=== PATIENT | female | born 1960 | race Caucasian/White ===

== ENCOUNTER 2020-01-21 13:27 | Outpatient (CLI) | payer OTHER, SELFPAY ==
--- NOTE | ~2020-01-21 | XR_ITS ---
XR abdomen/kub 1V DATE: 01/21/2020 13:55 INDICATION: Kidney calculus TECHNIQUE: AP projection, 2 views COMPARISON: 11/29/2015 KUB FINDINGS: There is a comma-shaped approximately 3 x 5 mm calcified density overlying the lower pole o f the right kidney. No other definite urinary tract calcification is noted. There is a prominent amount of fecal material within the colon but no apparent bowel obstruction. The psoas shadows are intact. No visceromegaly is evident. Normal heart size. The lung bases appear clear. Mild levoscoliosis and degenerative change of the lumbar spine.. IMPRESSION: Persistent lower pole right renal calcified calculus, also present on 11/29/2015 Reviewed, dictated and finalized at Location A. Reviewed, dictated and finalized at location B.
== END 2020-01-21 13:28 | disposition home or self-care (01) ==
LOC: ANHIMG 13:39
PROVIDERS: PCP Family Medicine; Visit Provider Nurse Practitioner Adult Health
DX: N20.0 Calculus of kidney (principal)
CPT/HCPCS: 74018

== ENCOUNTER 2020-05-13 10:24 | Outpatient (CLI) | payer OTHER, SELFPAY ==
--- NOTE | ~2020-05-13 | MM_ITS ---
EXAMINATION: MM screening [facility] BI w pooja HISTORY: Screening mammogram TECHNIQUE: Craniocaudal and mediolateral oblique 3-D tomosynthesis images were obtained and synthetic 2-D images were generated. CAD analysis was submitted and interpreted. COMPARISON: 04/18/2019, 04/12/2018, 04/10/2017 BREAST PARENCHYMAL COMPOSITION: The breasts are heterogeneously dense, which may obscure small masses . FINDINGS: There is no evidence of suspicious mass, calcification, or architectural distortion to sugg est malignancy in either breast. There has been no suspicious interval change. IMPRESSION: 1. No mammographic evidence of malignancy. 2. Recommend routine screening mammography in one year. BI-RADS Category 1: Negative Reviewed, dictated and finalized at location A.
== END 2020-05-13 10:25 | disposition home or self-care (01) ==
LOC: ANHIMG 10:27
PROVIDERS: PCP Family Medicine; Visit Provider Nurse Practitioner Obstetrics & Gynecology
DX: Z12.31 Encounter for screening mammogram for malignant neoplasm of breast (principal)
CPT/HCPCS: 77063; 77067

== ENCOUNTER 2021-05-06 09:48 | Outpatient (CLI) | payer OTHER, SELFPAY ==
--- NOTE | ~2021-05-06 | XR_ITS ---
EXAMINATION:XR cervical spine min 6V DATE: 05/06/2021 10:17 INDICATION: Spondylosis without myelopathy or radiculopathy, cervical TECHNIQUE: AP, lateral in neutral, flexion, and extension, lateral swimmers and odontoid views of the cervical spine are provided. COMPARISON: 10/31/2016 FINDINGS: There is 1 mm of stable anterolisthesis of C4 on C5. Vertebral body alignment is otherwise maintained. No laxity is present with flexion or extension. The odontoid is intact. No fracture is id entified. Vertebral body heights and disk spaces are normal. There is mild to moderate multilevel fac et and uncovertebral joint osteoarthritis. IMPRESSION: 1. Mild cervical spondylosis without acute findings or significant interval change. Reviewed, dictated and finalized at location B. IMPRESSION: 1. Mild cervical spondylosis without acute findings or significant interval leandra nge.
== END 2021-05-06 09:49 | disposition home or self-care (01) ==
LOC: ANHIMG 09:51
PROVIDERS: PCP Family Medicine; Visit Provider Family Medicine
DX: M47.892 Other spondylosis, cervical region (principal)
CPT/HCPCS: 72052

== ENCOUNTER 2021-05-16 07:44 | Outpatient (CLI) | payer OTHER, SELFPAY ==
--- NOTE | ~2021-05-16 | DEXA_ITS ---
Bone Density Report Name: Sara Vargas Age: 61 Sex: Female Ethnicity: White Date of : 1960 Indication: postmenopausal; Referring Provider: Kirsty, Joyce Cueto Study: Bone densitometry was performed. Exam Date: May 16, 2021 Accession number: [id number] Bone Density: Region BMD T-score Z-score Classification AP Spine (L1-L4) 0.767 -2.5 -1.0 Osteoporosis Femoral Neck (Left) 0.634 -1.9 -0.6 Osteopenia Total Hip (Left) 0.749 -1.6 -0.5 Osteopenia Total Hip Bilateral Avg 0.734 -1.7 -0.7 Osteopenia Femoral Neck (Right) 0.604 -2.2 -0.8 Osteopenia Total Hip (Right) 0.718 -1.8 -0.8 Osteopenia World Health Organization criteria for BMD impression classify patients as: Normal (T-score at or above -1.0), Osteopenia (T-score between -1.0 and -2.5), or Osteoporosis (T-score at or below -2.5). 10-year Fracture Risk: FRAX not reported because: Some T-score for Spine Total or Hip Total or Femoral Neck at or below -2.5 Treated for osteoporosis Clinical Information Provided by Patient: Is being treated for osteoporosis Has used the following medications: Vitamin D, Calcium Patient maximum height was 60 Menopause Age: 49 Onset of menses at age 10 Number of children 1 Impression: The patient has osteoporosis, based on the Total Spine T-score. Discussion: It is important to ask patients whether they are taking their medications and to encourage continued and appropriate compliance with their osteoporosis therapies to reduce fracture risk. It is also important to review their risk factors and encourage appropriate calcium and vitamin D intakes, exercise, fall prevention and other lifestyle measures. Follow-Up: Consider a repeat BMD and Vertebral Fracture Assessment (VFA) exam in 2 years or sooner if medically necessary, to reassess this patient's status. Reported by: [facility] on 05/16/2021 8:08:00 AM. Reviewed, dictated and finalized at location AEboni HARTMAN
--- NOTE | ~2021-05-16 | MM_ITS ---
EXAMINATION: MM screening [facility] BI w pooja HISTORY: Screening mammogram TECHNIQUE: Craniocaudal and mediolateral oblique 3-D tomosynthesis images were obtained and synthetic 2-D images were generated. CAD analysis was submitted and interpreted. COMPARISON: 05/13/2020, 04/18/2019, 04/12/2018, 04/10/2017 BREAST PARENCHYMAL COMPOSITION: The breasts are heterogeneously dense, which may obscure small masses . FINDINGS: There is no evidence of suspicious mass, calcification, or architectural distortion to sugg est malignancy in either breast. There has been no suspicious interval change. IMPRESSION: 1. No mammographic evidence of malignancy. 2. Recommend routine screening mammography in one year. BI-RADS Category 1: Negative Reviewed, dictated and finalized at location A.
== END 2021-05-16 07:45 | disposition home or self-care (01) ==
LOC: ANHIMG 07:45
PROVIDERS: PCP Family Medicine; Visit Provider Nurse Practitioner Obstetrics & Gynecology
DX: Z12.31 Encounter for screening mammogram for malignant neoplasm of breast (principal); M85.80 Other specified disorders of bone density and structure, unspecified site; M81.0 Age-related osteoporosis without current pathological fracture; M85.852 Other specified disorders of bone density and structure, left thigh; M85.851 Other specified disorders of bone density and structure, right thigh
CPT/HCPCS: 77063; 77067; 77080

== ENCOUNTER 2021-09-01 11:00 | Outpatient (RCR) | payer OTHER, SELFPAY ==
--- NOTE | 2021-06-07 11:55 | PTOPEVAL ---
PHYSICAL THERAPY EVALUATION AND PLAN OF CARE Thank you for referring Sara Vargas to [facility].? The patient is scheduled to be seen for therapy?1x/week for 6 weeks. Please review, sign, date and return this plan of care ALEXANDREA. I agree with and certify that the following plan of care is medically necessary. Referring Physician Date Attending Provider: Briana Eastman MD Evaluation Diagnosis cervical pain Onset March 2021 Subjective Information Sara does have a chronic Query Text:As Reported By Patient/ history of neck pain that she Family was managing with massage and chiropractic. She has participated in PT in the past with success. In the end of March, she was getting a massage and experienced a pressure across the front of her sternum and anterior neck. After several days she woke up with a major migraine. She stopped massage, increased the frequency of seeing her chiropractor and he assessed her to have vertigo symptoms ( did have some dizziness but that seems to be resolved). She reports feeling extreme fatigue through her neck and shoulders. Migraines are more frequent than they had been. Self Report Pain Assessment Spine, Cervical Reported Pain Level 5 Pain Description Tightness Pain Radiation Left Shoulder,Right Shoulder Pain Frequency Acute,Intermittent Other Pain Aggravating Factors looking down can provoke fatigued feeling Pain Behaviors None Pain Score Pain Score 5: Self Report Interventions Used Interventions Used By Clinicians Exercise,Manual Therapy Techniques Pain Relief Interventions Used By Inactivity/Rest,Medication Patient Cervical and Lumbar ROM Cervical ROM Cervical Flexion (0-60) 25 Query Text:Active in Degrees Cervical Extension (0-70) 25 Query Text:Active in Degrees Cervical Rotation Right (0-90) 25 Query Text:Active in Degrees Cervical Rotation Left (0-90) 25 Query Text:Active in Degrees Cervical ROM Comments cervical flexion and extension improved after manual assessment
--- NOTE | 2021-07-19 14:44 | PTOPEVAL ---
PHYSICAL THERAPY PLAN OF CARE UPDATE Thank you for referring Sara Vargas to [facility].? The patient is scheduled to be seen for therapy? 1x/week for 4-6 weeks. Please review, sign, date and return this plan of care ALEXANDREA. I agree with and certify that the following plan of care is medically necessary. Referring Physician Date Attending Provider: Briana Eastman MD Progress Diagnosis cervical pain Onset March 2021 Self Report Pain Assessment Spine, Cervical Reported Pain Level 3 Pain Description Tightness Pain Radiation Left Shoulder,Right Shoulder Pain Frequency Acute,Intermittent Other Pain Aggravating Factors . Pain Behaviors None Pain Score Pain Score 3: Self Report Interventions Used Interventions Used By Clinicians Manual Therapy Techniques Pain Relief Interventions Used By Inactivity/Rest,Medication Patient Cervical and Lumbar ROM Cervical ROM Cervical Flexion (0-60) 50 Query Text:Active in Degrees Cervical Extension (0-70) 50 Query Text:Active in Degrees Cervical Rotation Right (0-90) 55 Query Text:Active in Degrees Cervical Rotation Left (0-90) 50 Query Text:Active in Degrees Cervical ROM Comments cervical flexion and extension improved after manual assessment Upper Extremity Muscle Strength Testing Scapular/Shoulder Left Shoulder Flexion Strength 4+ Good + Shoulder Abduction Strength 4+ Good + Shoulder Medial Rotation Strength 5 Normal Shoulder Lateral Rotation Strength 5 Normal Right Shoulder Flexion Strength 4 Good Shoulder Abduction Strength 4 Good Shoulder Medial Rotation Strength 5 Normal Shoulder Lateral Rotation Strength 5 Normal Palpation Assessment Palpation Palpation significantly improved upper cervical and head mobility; left upper trapezius and scalenes inflamed today - she does have something like an earache today that she has had before and was treated well with direct care professional; General Exercise General Exercises Side Bilateral Exercise Location shoulders Exercise Type Active,Resistive,Stretching Exercise Description -prone scapular retraction Query Text:Record Sets, Reps, -prone lower trapezius Resistance, and Position activation -prone middle trapezius, good performance on right, poor
--- NOTE | 2021-09-05 15:59 | PCPTNOTE ---
This treatment is being continued on visit number [id number]. Please see documentation on both accounts to view progress. Completed interventions, outcomes, and problems have been marked as Inactive to facilitate the copying of the Care plan routine for recurring accounts.
== END 2021-09-04 23:59 | disposition home or self-care (01) ==
LOC: ANHPT 11:00
PROVIDERS: PCP Family Medicine; Visit Provider Family Medicine
DX: M47.812 Spondylosis without myelopathy or radiculopathy, cervical region (principal)
CPT/HCPCS: 97110; 97140; 97162

== ENCOUNTER 2021-09-28 07:27 | Outpatient (CLI) | payer OTHER, SELFPAY ==
--- NOTE | ~2021-09-28 | US_ITS ---
EXAMINATION: US abdomen complete DATE: 09/28/2021 08:44 INDICATION: Elevated liver function tests TECHNIQUE: Multiple grayscale and Doppler ultrasound images of the abdomen were obtained. COMPARISON: None FINDINGS: The pancreatic head and body are normal in appearance. The pancreatic tail is not visualized. Liver h as normal echogenicity and contour, with a smooth surface. No liver lesion identified. No intrahepati c biliary duct dilation suspected. Portal venous flow was seen in the hepatopetal, normal direction a nd has normal Doppler waveform. The gallbladder is normal in appearance. There is no cholelithiasis. The common bile duct measures 4 mm, which is normal. Sonographic [place] sign was reported as negativ e by the sailing officer. The abdominal aorta and inferior vena cava are normal. There is normal renal co ntour and echogenicity bilaterally. The right kidney measures 8.6 x 4.8 x 3.5 cm and the left 8.5 x 4 .2 x 3.8 cm. There are no focal renal lesions identified. There is no hydronephrosis. Spleen is nor mal measuring 6.3 cm in maximal length. IMPRESSION: 1. Normal abdominal ultrasound. Reviewed, dictated and finalized at location A. 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
== END 2021-09-28 07:28 | disposition home or self-care (01) ==
PROVIDERS: PCP Family Medicine; Visit Provider Physician Assistant
DX: R79.89 Other specified abnormal findings of blood chemistry (principal)
CPT/HCPCS: 76700

== ENCOUNTER 2021-10-18 14:00 | Outpatient (RCR) | payer OTHER, SELFPAY ==
--- NOTE | 2021-09-05 15:58 | PCPTNOTE ---
The treatment documented on this account is a continuation of the treatment documented on visit number [id number]. Please see documentation on both accounts to view progress. The Plan of Care has been transitioned and updated within the new V#. I have addressed and agree with the discipline specific Problems, Interventions, and Goals for the current certification period. Completed interventions, outcomes, and problems have been marked as Inactive to facilitate the copying of the Care plan routine for recurring accounts.
--- NOTE | 2021-09-07 15:17 | PTOPEVAL ---
PHYSICAL THERAPY PROGRESS REPORT Thank you for referring Sara Vargas to [facility].? The patient is scheduled to be seen for therapy? 2-4x/month for 2 months. Please review, sign, date and return this plan of care ALEXANDREA. I agree with and certify that the following plan of care is medically necessary. Referring Physician Date Attending Provider: Briana Eastman MD Progress Diagnosis cervical pain Onset March 2021 Subjective Information Overall is doing very well Query Text:As Reported By Patient/ with her neck. Some occasional Family set backs and episodes of pain after increased activity. Migraines have decreased by about 30-50% depending on activity. Anterior neck pain flared up a little bit this morning but it is better by this after noon. Has a complaint of a small amount of low back pain on the right. Saw her chiropractor who is noticing dysfunction of the left glute but she has no pain. Pain Score Pain Score 1: Self Report Interventions Used Interventions Used By Clinicians Exercise,Joint Mobilization, Manual Therapy Techniques Pain Relief Interventions Used By Inactivity/Rest,Medication Patient Upper Extremity Range of Motion General Upper Extremity Range of Motion Reason Not Measured WFL/Left,WFL/Right Gross Upper Extremity Range of Motion grossly WFL, but right is Comments slightly more restricted at end range and is more stiff to bring behind head Lower Extremity Muscle Strength Testing Hip Strength Bilateral Hip Flexion Strength 4+ Good + Hip Abduction Strength 3+ Fair + Upper Extremity Muscle Strength Testing Scapular/Shoulder Bilateral Shoulder Flexion Strength 4+ Good + Shoulder Abduction Strength 4+ Good + Shoulder Medial Rotation Strength 5 Normal Shoulder Lateral Rotation Strength 5 Normal Muscle Length Testing Muscle Length Testing Left Hamstring Length -25 Query Text:(90 - 90 Position) Right Hamstring Length -10 Query Text:(90 - 90 Position) Muscle Length Testing Comments right QL short compared to left Palpation Assessment Palpation Palpation I consider her upper cervical mobility to be WNL at this time with a very minimal amount of tightness on the
--- NOTE | 2021-10-18 14:37 | PTOPEVAL ---
PHYSICAL THERAPY DISCHARGE NOTE Thank you for referring Sraa Vargas to [facility]. Please review, sign, date and return this plan of care ALEXANDREA. I agree with and certify that the following plan of care is medically necessary. Referring Physician Date Attending Provider: Briana Eastman MD Diagnosis cervical pain Onset March 2021 Subjective Information Still doing much better. Some Query Text:As Reported By Patient/ occasional set backs and Family episodes of pain after increased activity. Migraines have decreased by about 50-70% depending on activity. Anterior neck pain is doing very well. Starting get much more involved in exercise programs at the [facility] and she is doing well. Self Report Pain Assessment Neck Reported Pain Level 1 Pain Score Pain Score 1: Self Report Interventions Used Interventions Used By Clinicians Exercise,Joint Mobilization, Manual Therapy Techniques Pain Relief Interventions Used By Exercise,Inactivity/Rest, Patient Medication Cervical and Lumbar ROM Cervical ROM Cervical Flexion (0-60) 60 Query Text:Active in Degrees Cervical Extension (0-70) 55 Query Text:Active in Degrees Cervical Rotation Right (0-90) 60 Query Text:Active in Degrees Cervical Rotation Left (0-90) 60 Query Text:Active in Degrees Cervical ROM Comments . Upper Extremity Muscle Strength Testing Scapular/Shoulder Bilateral Shoulder Flexion Strength 5 Normal Shoulder Extension Strength 5 Normal Shoulder Abduction Strength 4+ Good + Shoulder Medial Rotation Strength 5 Normal Shoulder Lateral Rotation Strength 5 Normal Palpation Assessment Palpation Palpation I consider her upper cervical and thoracic mobility to be WNL Manual Therapy Manual Therapy Side Bilateral Manual Therapy Location Spine, Cervical Patient Position Supine Treatment Comments supine: lateral glides Query Text:Include Technique and cervical spine gr 1-2 each Result of Technique direction - -prone: myofascial release to upper thoracic and right and left ribs [id number]; P-A thoracic spine gr 2-3; STM paraspinals; myofascial release and thoracolumbar
== END 2021-12-19 13:08 | disposition home or self-care (01) ==
LOC: ANHPT 14:00
PROVIDERS: PCP Family Medicine; Visit Provider Family Medicine
DX: M47.812 Spondylosis without myelopathy or radiculopathy, cervical region (principal)
CPT/HCPCS: 97110; 97140

== ENCOUNTER 2022-05-19 07:41 | Outpatient (CLI) | payer OTHER, SELFPAY ==
--- NOTE | ~2022-05-19 | MM_ITS ---
EXAMINATION: MM screening [facility] BI w pooja HISTORY: Screening mammogram TECHNIQUE: Craniocaudal and mediolateral oblique 3-D tomosynthesis images were obtained and synthetic 2-D images were generated. CAD analysis was submitted and interpreted. COMPARISON: 05/16/2021, 05/13/2020, 04/18/2019 BREAST PARENCHYMAL COMPOSITION: The breasts are heterogeneously dense, which may obscure small masses . FINDINGS: There is no suspicious mass, calcification, or architectural distortion to suggest malignan cy in either breast. There has been no suspicious interval change. IMPRESSION: 1. No mammographic evidence of malignancy. 2. Recommend routine screening mammography in one year. BI-RADS Category 1: Negative Reviewed, dictated and finalized at location A.
== END 2022-05-19 07:42 | disposition home or self-care (01) ==
LOC: ANHIMG 07:43
PROVIDERS: PCP Family Medicine; Visit Provider Nurse Practitioner Obstetrics & Gynecology
DX: Z12.31 Encounter for screening mammogram for malignant neoplasm of breast (principal)
CPT/HCPCS: 77063; 77067

== ENCOUNTER 2022-07-04 10:10 | Outpatient (CLI) | payer OTHER, SELFPAY ==
--- NOTE | ~2022-07-04 | XR_ITS ---
EXAM: XR abdomen/kub 1V DATE: 07/04/2022 10:28 HISTORY: CALCULUS OF KIDNEY, right side . COMPARISON: 01/21/2020. FINDINGS: Clear lung bases. Normal bowel gas pattern. No organomegaly. Right midpole calcification p robably still present and stable, mostly obscured by bowel gas and bowel content. Mild lumbar scolios is. IMPRESSION: Right renal calcification likely still present partially obscured by bowel gas/contents e xam. Reviewed, dictated and finalized at location K. IMPRESSION: Right renal calcification likely still present partially obscured b y bowel gas/contents exam.
== END 2022-07-04 10:11 | disposition home or self-care (01) ==
PROVIDERS: PCP Family Medicine; Visit Provider Nurse Practitioner Adult Health
DX: N20.0 Calculus of kidney (principal)
CPT/HCPCS: 74018

== ENCOUNTER 2022-08-13 08:43 | Outpatient (CLI) | payer OTHER, SELFPAY ==
--- NOTE | ~2022-08-13 | XR_ITS ---
XR abdomen/kub 1V 08/13/2022 09:06 INDICATION: Renal stone TECHNIQUE: KUB COMPARISON: Comparison to multiple prior studies sequentially, with oldest reviewed study dated 10/05. FINDINGS: Bowel gas pattern is normal. Bowel content obscures the kidneys. No definite renal stones a re identified. There is no evidence of free air, mass, organomegaly, ascites or obstruction. No abno rmal calculi are seen. The bones appear intact. IMPRESSION: 1: No acute abdominal abnormality identified. Reviewed, dictated and finalized at location A.
== END 2022-08-13 08:44 | disposition home or self-care (01) ==
LOC: ANHIMG 08:46
PROVIDERS: PCP Family Medicine; Visit Provider Nurse Practitioner Adult Health
DX: N20.0 Calculus of kidney (principal)
CPT/HCPCS: 74018

== ENCOUNTER 2023-05-21 07:43 | Outpatient (CLI) | payer OTHER, SELFPAY ==
--- NOTE | ~2023-05-21 | MM_ITS ---
EXAMINATION: MM screening [facility] BI w pooja HISTORY: Screening TECHNIQUE: Craniocaudal and mediolateral oblique 3-D tomosynthesis images were obtained and synthetic 2-D images were generated. CAD analysis was submitted and interpreted. COMPARISON: Comparison to multiple prior studies sequentially, with oldest reviewed study dated 04/2017. BREAST PARENCHYMAL COMPOSITION: The breasts are extremely dense, which lowers the sensitivity of mamm ography FINDINGS: There is subtle asymmetries centrally in the right breast which may represent superimposed fibroglandular content, although follow-up recommended. The left breast is stable without evidence fo r malignancy. IMPRESSION: 1. Subtle right breast asymmetries located centrally, obscured by fibroglandular tissue. 2. Additional mammographic views and possible breast ultrasound are recommended. BI-RADS Category 0: Incomplete: Needs additional imaging evaluation. Reviewed, dictated and finalized at location A. IMPRESSION: 1. Subtle right breast asymmetries located centrally, obscured by fibroglandula r tissue. 2. Additional mammographic views and possible breast ultrasound are recommended . BI-RADS Category 0: Incomplete: Needs additional imaging evaluation.
--- NOTE | ~2023-05-21 | DEXA_ITS ---
Bone Density Report Name: MARISELA GARCIA Age: 63 Sex: Female Ethnicity: White Date of : 1960 Indication: postmenopausal; screening for osteoporosis; Referring Provider: KATELIN DAWKINS Study: Bone densitometry was performed. Exam Date: May 21, 2023 Accession number: [id number] Bone Density: Region BMD T-score Z-score Classification AP Spine(L1-L4) 0.782 -2.4 -0.7 Osteopenia Femoral Neck (Left) 0.627 -2.0 -0.5 Osteopenia Total Hip (Left) 0.719 -1.8 -0.7 Osteopenia Femoral Neck (Right) 0.619 -2.1 -0.6 Osteopenia Total Hip (Right) 0.737 -1.7 -0.5 Osteopenia Total Hip Mean 0.728 -1.8 -0.6 Osteopenia World Health Organization criteria for BMD impression classify patients as: Normal (T-score at or above -1.0), Osteopenia (T-score between -1.0 and -2.5), or Osteoporosis (T-score at or below -2.5). 10-year Fracture Risk(1): Major Osteoporotic Fracture 9.0% Hip Fracture 1.5% Reported Risk Factors: [place] (), Neck BMD=0.619, BMI=19.1 (1) FRAX(R) Version 3.08. Fracture probability calculated for an untreated patient. Fracture probability may be lower if the patient has received treatment. Clinical Information Provided by Patient: Has used the following medications: Vitamin D, Calcium Patient maximum height was 60 Menopause Age: 51 Does not regularly consume dairy products Onset of menses at age 10 Number of children 1 Impression: The patient has low bone mass, based on the Total Spine T-score. The patient has an estimated ten-year risk of hip fracture of 1.5% and an estimated ten-year risk of major fracture of 9%, based on the WHO FRAX algorithm. Discussion: BONE DENSITY IS LOW AT ONE OR MORE SKELETAL SITES. This patient's lowest T-score is low at one or more skeletal sites. It meets the World Health Organization's (WHO) criteria for ?low bone mass? (T-score between -1.0 and -2.5). The patient's 10-year risk of fracture as calculated by FRAX is less than the threshold where pharmacological therapy is recommended by the National Osteoporosis Foundation (NOF). However, all treatment decisions require clinical judgment and consideration of individual patient factors, including patient preferences, comorbidities, previous drug use, risk factors not captured in the FRAX model (e.g., frailty, falls, vitamin D deficiency, increased bone turnover, interval significant decline in bone density) and possible under or overestimation of fracture risk by FRAX. The patient should follow a healthful lifestyle (good nutrition with adequate calcium and vitamin D, and appropriate weight-bearing exercise). Follow-Up: Consider repeating this study in 2 to 3 years to reassess this patient's status, or sooner if there is some new clinical indication. Reported by: YOLANDA on 05/21/2023 2:27:0
== END 2023-05-21 07:44 | disposition home or self-care (01) ==
LOC: ANHIMG 07:45
PROVIDERS: PCP Family Medicine; Visit Provider Physician Assistant
DX: Z12.31 Encounter for screening mammogram for malignant neoplasm of breast (principal); Z78.0 Asymptomatic menopausal state; R92.8 Other abnormal and inconclusive findings on diagnostic imaging of breast; M85.88 Other specified disorders of bone density and structure, other site; M85.852 Other specified disorders of bone density and structure, left thigh; M85.851 Other specified disorders of bone density and structure, right thigh
CPT/HCPCS: 77063; 77067; 77080

== ENCOUNTER 2023-05-22 11:54 | Outpatient (CLI) | payer OTHER, SELFPAY ==
--- NOTE | ~2023-05-22 | MMUS_ITS ---
EXAMINATION: MM diagnostic [facility] RT w pooja, US breast RT complete HISTORY: Follow-up right breast asymmetries. TECHNIQUE: Additional 3-D tomosynthesis images of the right breast were performed and synthetic 2-D i mages were generated. CAD analysis was submitted and interpreted. High resolution complete right madeline st ultrasound was performed. COMPARISON: Comparison to multiple prior studies sequentially, with oldest reviewed study dated 06/2018. BREAST PARENCHYMAL COMPOSITION: The breasts are extremely dense, which lowers the sensitivity of mamm ography FINDINGS: MAMMOGRAPHIC FINDINGS: There are no suspicious masses, calcifications or architectural distortion in the right breast to sug gest malignancy. ULTRASOUND: Complete US of all 4 quadrants of the right breast and retroareolar region was reviewed. There is nor mal heterogeneous echotexture without focal solid or cystic mass. IMPRESSION: 1. No evidence for malignancy in the right breast. 2. Routine yearly screening mammogram and regular clinical breast examination are recommended. BI-RADS Category 1: Negative Reviewed, dictated and finalized at location A. IMPRESSION: 1. No evidence for malignancy in the right breast. 2. Routine yearly screening mammogram and regular clinical breast examination a re recommended. BI-RADS Category 1: Negative
== END 2023-05-22 11:55 | disposition home or self-care (01) ==
PROVIDERS: PCP Family Medicine; Visit Provider Physician Assistant
DX: R92.8 Other abnormal and inconclusive findings on diagnostic imaging of breast (principal)
CPT/HCPCS: 76641; 77061; 77065; G0279

== ENCOUNTER 2023-06-26 07:48 | Outpatient (CLI) | payer OTHER, SELFPAY | END 2023-06-26 07:49 | disposition home or self-care (01) | LOC: ANHAUDIO 07:48 | PROVIDERS: PCP Family Medicine; Visit Provider Physician Assistant | DX: H91.90 Unspecified hearing loss, unspecified ear (principal) | CPT/HCPCS: 92557; 92567 ==

== ENCOUNTER 2023-08-20 09:00 | Outpatient (RCR) | payer OTHER, SELFPAY ==
--- NOTE | 2023-05-28 10:51 | PTOPEVAL1 ---
Assessment and note entered by Sam Brooks, PT Evaluation Information Assessment Status Evaluation Diagnosis Cervical Radiculopathy Onset 12/06/22 Subjective Information Reports that she has been taking a dance class and doing yoga and has noted increased neck and cervical pain with radiation up and down her neck and occasionally into face. Sometimes it feel like an ear ache. She takes Imitrex for her migraines and they help all symptoms. Reported Pain Level Pain Score 0: Self Report Assessment PT Clinical Summary Patient presenting with sings and symptoms consistent with facet irritation and loss of cervical ROM. Deficits appear joint related at this time and have had a consistent provocation with activity. Patient also shows postural deficits and will benefit from skilled therapy to address these deficits. Plan of Care Interventions Electrical Stimulation,Hot Pack/Cold Pack,Manual Therapy,Neuro Re-education,Therapeutic Activities, Therapeutic Exercise PT Services Indicated Yes These treatments will address the objective and functional deficits as defined above. The patient will be advanced safely and appropriately in order for the patient to progress towards his/her prior level of function. Additional exercises will be introduced and as well as a comprehensive home exercise program upon discharge, if needed, ?to ensure carryover of functional gains achieved in the clinic. This treatment plan has been reviewed and agreement upon by the patient.
--- NOTE | 2023-05-28 10:51 | OPREHPOC ---
Outpatient Therapy Plan of Care This is a Multidisciplinary Plan of Care that may contain components documented by all disciplines (PT, OT, and ST.) PT Problem 1 PT Problem #1 Knowledge Deficit PT Goal 1 Goal Patient will be independent with postural synagogue and shoulder strengthening program Target Visit 8 PT Problem 2 PT Problem #2 Pain PT Goal 1 Goal Report no pain greater than 2/10 during exercise class Target Visit 8 PT Problem 3 PT Problem #3 Impaired Strength PT Goal 1 Goal Improve aquiles middle trapezius strength to 4/5 to improve postural control PT Problem 4 PT Problem #4 Impaired Range of Motion PT Goal 1 Goal Demonstrate 60 degrees of aquiles cervical rotation for improved functional facet gliding and reduced upper trapezius straining with ADLs
--- NOTE | 2023-06-25 13:38 | PTOPPROG ---
Assessment and note entered by Sam Brooks, PT Evaluation Information Assessment Status Evaluation Diagnosis Cervical Radiculopathy Onset 12/06/22 Subjective Information Reports that she still feels some pain in L posterior shoulder. She was however able to do some yoga positions that she has been unable to do for a long time. Her pain level is really only increased when reaching behind her. She has been able to be more active and has not had any migraines to date since therapy started. Feels that she has more functional ROM. Assessment PT Clinical Summary Patient has made excellent progress in cervical ROM which is at a greater degree than I expected that we would achieve. 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 Plan of Care Interventions Electrical Stimulation,Hot Pack/Cold Pack,Manual Therapy,Neuro Re-education,Therapeutic Activities, Therapeutic Exercise PT Services Indicated Yes These treatments will address the objective and functional deficits as defined above. The patient will be advanced safely and appropriately in order for the patient to progress towards his/her prior level of function. Additional exercises will be introduced and as well as a comprehensive home exercise program upon discharge, if needed, ?to ensure carryover of functional gains achieved in the clinic. This treatment plan has been reviewed and agreement upon by the patient.
--- NOTE | 2023-06-25 13:38 | OPREHPOC ---
Outpatient Therapy Plan of Care This is a Multidisciplinary Plan of Care that may contain components documented by all disciplines (PT, OT, and ST.) PT Problem 1 PT Problem #1 Knowledge Deficit PT Goal 1 Goal Patient will be independent with postural jainism and shoulder strengthening program Target Visit 8 Progress Met PT Problem 2 PT Problem #2 Pain PT Goal 1 Goal Report no pain greater than 2/10 during exercise class Target Visit 8 Progress Met PT Problem 3 PT Problem #3 Impaired Strength PT Goal 1 Goal Improve aquiles middle trapezius strength to 4/5 to improve postural control Target Visit 12 Progress Partially Met Comment Not progressed at this point but being emphasized PT Goal 2 Goal Patient will improve aquiles shoulder ER strength to 4 +/5 to improve shoulder girdle stability and self care Target Visit 12 PT Problem 4 PT Problem #4 Impaired Range of Motion PT Goal 1 Goal Demonstrate 60 degrees of aquiles cervical rotation for improved functional facet gliding and reduced upper trapezius straining with ADLs Target Visit 8 Progress Partially Met Comment Improved bilaterally
--- NOTE | 2023-07-18 12:40 | PCPTNOTE ---
Pt canceled 07/18/23 appointment but did not leave reason.
--- NOTE | 2023-07-30 13:32 | OPREHPOC ---
Outpatient Therapy Plan of Care This is a Multidisciplinary Plan of Care that may contain components documented by all disciplines (PT, OT, and ST.) PT Problem 1 PT Problem #1 Knowledge Deficit PT Goal 1 Goal Patient will be independent with posturla restroation and shoulder strengthening program Target Visit 8 Progress Met Comment 07-30-23 progress continue towards goal, to progress education PT Problem 2 PT Problem #2 Pain PT Goal 1 Goal Report no pain greater than 2/10 during exercise class Target Visit 8 Progress Met Comment 07-30-23 progress not met continue towards goal PT Problem 3 PT Problem #3 Impaired Strength PT Goal 1 Goal Improve aquiles middle trapezius strength to 4/5 to improve postural control Target Visit 12 Progress Partially Met Comment Not progressed at this point but being emphasized PT Goal 2 Goal Patient will improve aquiles shoulder ER strength to 4 +/5 to improve shoulder girdle stability and self care Target Visit 12 Progress Not Met Comment 07-30-23 progress not met continue towards goal PT Problem 4 PT Problem #4 Impaired Range of Motion PT Goal 1 Goal Demonstrate 60 degrees of aquiles cervical rotation for improved functional facet gliding and reduced upper trapezius straining with ADLs Target Visit 8 Progress Partially Met Comment Improved bilaterally 07-30-23 progress not met continue towards goal,
--- NOTE | 2023-07-30 13:32 | PTOPPROG ---
Assessment and note entered by Shruti Anne, PT Evaluation Information Assessment Status Progress Diagnosis Cervical Radiculopathy Onset 12/06/22 Subjective Information was doing good, then had a set back when pulling luggage [place] me at airport; have been using ice and went to massage therapist for it and little better; was improving with therapy before this happened--pain less and range was better and stronger; continue to see the chiropractor, going later today for a neck adjustment; PAIN: 8-9/10 spasms over thoracic spine, tingling into R arm to fingertips, 60-70% day; cannot lie on her R side or back due to pain; taking over the counter pain meds; have not been having any headaches or migraines; Assessment PT Clinical Summary Sara has received 11 PT sessions. She had been doing well with decreased pain and working on strengthening. She had a recent increase in pain, with intermittent radicular pain into R arm to fingers, after pulling a suitcase behind her with her R arm. With the reassessment today, she has not met the PT goals. Continue PT treatment, to decrease pain and spasms with progression to strengthening as tolerated. Plan of Care Interventions Electrical Stimulation,Hot Pack/Cold Pack,Manual Therapy,Neuro Re-education,Patient Education,Therapeutic Activities,Therapeutic Exercise,Ultrasound,Other Other Interventions dry needling, IASTM PT Services Indicated Yes Treatment Frequency and 2x/wk for 3 weeks Duration These treatments will address the objective and functional deficits as defined above. The patient will be advanced safely and appropriately in order for the patient to progress towards his/her prior level of function. Additional exercises will be introduced and as well as a comprehensive home exercise program upon discharge, if needed, ?to ensure carryover of functional gains achieved in the clinic. This treatment plan has been reviewed and agreement upon by the patient.
--- NOTE | 2023-08-20 09:46 | OPREHPOC ---
Outpatient Therapy Plan of Care This is a Multidisciplinary Plan of Care that may contain components documented by all disciplines (PT, OT, and ST.) PT Problem 1 PT Problem #1 Knowledge Deficit PT Goal 1 Goal Patient will be independent with postural congregational and shoulder strengthening program Target Visit 8 Progress Met PT Problem 2 PT Problem #2 Pain PT Goal 1 Goal Report no pain greater than 2/10 during exercise class Target Visit 8 Progress Partially Met Comment Improved again, but still having good and bad days PT Problem 3 PT Problem #3 Impaired Strength PT Goal 1 Goal Improve aquiles middle trapezius strength to 4/5 to improve postural control Target Visit 12 Progress Met Comment Continued emphasis for intermediate manager stability PT Goal 2 Goal Patient will improve aquiles shoulder ER strength to 4 +/5 to improve shoulder girdle stability and self care Target Visit 12 Progress Not Met Comment Still showing significant weakness in muscle group PT Problem 4 PT Problem #4 Impaired Range of Motion PT Goal 1 Goal Demonstrate 60 degrees of aquiles cervical rotation for improved functional facet gliding and reduced upper trapezius straining with ADLs Target Visit 8 Progress Partially Met Comment Improved bilaterally
--- NOTE | 2023-08-20 09:47 | PTOPPROG ---
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 Pain is much better controlled after lifting re-injury. She feels that the dry needling has been extremely beneficial but she has avoided return to home strengthening and yoga at this time. 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 Assessment PT Clinical Summary Patient has continued to again make progress. Still somewhat limited by pain but improving. We have seen some strength and ROM improvement with the recurrence of diminishment of pain through dry needling treatment and manual mobilization. 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 Plan of Care Interventions Electrical Stimulation,Hot Pack/Cold Pack,Manual Therapy,Neuro Re-education,Patient/Caregiver Education,Therapeutic Activities,Therapeutic Exercise,Ultrasound,Other Other Interventions dry needling, IASTM PT Services Indicated Yes Treatment Frequency and 1x/wk for 3 weeks Duration These treatments will address the objective and functional deficits as defined above. The patient will be advanced safely and appropriately in order for the patient to progress towards his/her prior level of function. Additional exercises will be introduced and as well as a comprehensive home exercise program upon discharge, if needed, ?to ensure carryover of functional gains achieved in the clinic. This treatment plan has been reviewed and agreement upon by the patient.
== END 2023-08-23 11:10 | disposition home or self-care (01) ==
LOC: ANHPT 09:00
PROVIDERS: PCP Family Medicine; Visit Provider Physician Assistant
DX: M54.12 Radiculopathy, cervical region (principal)
CPT/HCPCS: 97110; 97140; 97161; 97530

== ENCOUNTER 2023-09-13 09:00 | Outpatient (RCR) | payer OTHER, SELFPAY ==
--- NOTE | 2023-09-07 15:29 | PCPTNOTE ---
Patient Treatment Notes continuation from [id number]
--- NOTE | 2023-09-13 09:54 | PTOPDC ---
Assessment and note entered by Sam Brooks, PT Evaluation Information Assessment Status Discharge Diagnosis Cervical Radiculopathy Onset 12/06/22 Subjective Information Reports that she overall is feeling much better. Less dependant on chiropractic. 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 Feels better as the day goes on. Able to sleep on her right side again which she has not been able to do since July. Reported Pain Level Pain Score 0: Self Report Assessment PT Clinical Summary Patient has met all goals for therapy at this time and is suitable for discharge to [facility]. Continues to show some R shoulder weakness which will be addressed through HEP. Plan of Care PT Services Indicated Discharge
== END 2023-11-20 12:24 | disposition home or self-care (01) ==
LOC: ANHPT 09:00
PROVIDERS: PCP Family Medicine; Visit Provider Physician Assistant
DX: M54.12 Radiculopathy, cervical region (principal)
CPT/HCPCS: 97110; 97140

== ENCOUNTER 2024-04-12 12:36 | Outpatient (CLI) | payer MEDICARE, SELFPAY ==
--- NOTE | ~2024-04-12 | XR_ITS ---
XR abdomen/kub 1V DATE: 04/12/2024 12:48 INDICATION: Right renal calculus TECHNIQUE: AP views COMPARISON: 08/13/2022 KUB FINDINGS: Multiple costal cartilage calcifications overlie the kidneys bilaterally, limiting plain ra diographic evaluation of the kidneys for calcified calculi. Noncontrast CTs abdomen pelvis would be m ost accurate and sensitive for detection of urinary tract calculi. The psoas shadows are intact. No visceromegaly is noted. There is a moderately prominent fecal material in the colon. No bowel obstruction is detected. Mild levoscoliosis of the lumbar spine. No suspicious osteolytic or osteoblastic lesions are noted. IMPRESSION: Nonspecific abdomen; no significant change other than increased fecal: Contents since 08/13/2022 Reviewed, dictated and finalized at [facility]. Reviewed, dictated and finalized at location A. IMPRESSION: Nonspecific abdomen; no significant change other than increased fec al: Contents since 08/13/2022
== END 2024-04-12 12:37 | disposition home or self-care (01) ==
PROVIDERS: PCP Family Medicine; Visit Provider Physician Assistant
DX: N20.0 Calculus of kidney (principal)
CPT/HCPCS: 74018

== ENCOUNTER 2024-04-23 15:24 | Outpatient (CLI) | payer MEDICARE, SELFPAY ==
--- NOTE | ~2024-04-23 | CT_ITS ---
EXAMINATION: CT abdomen pelvis wo con DATE: 04/23/2024 15:48 INDICATION: Kidney stones. TECHNIQUE: Computed tomography (CT) of the abdomen and pelvis was performed without intravenous contr ast. Automated exposure control and iterative reconstruction technique were employed. The dose-length product was 187.62 mGy-cm. COMPARISON: None. FINDINGS: The visualized portions of the lung bases posterior minimal atelectasis. No pleural effusio n. The heart size is normal. No pericardial effusion. Pectus excavatum is noted. The liver, gallbladd er, spleen, pancreas, adrenal glands, and left kidney are normal. There is a 5 mm stone in right kidn ey. There are no dilated loops of bowel. The appendix is not visualized. There are no pathologically enlarged lymph nodes. There is no free intraperitoneal fluid. There is mild lumbar spondylosis. IMPRESSION: 1. 5 mm nonobstructing right kidney stone. Reviewed, dictated and finalized at location A.
== END 2024-04-23 15:25 | disposition home or self-care (01) ==
PROVIDERS: PCP Family Medicine; Visit Provider Physician Assistant
DX: N20.0 Calculus of kidney (principal)
CPT/HCPCS: 74176

== ENCOUNTER 2024-05-27 15:09 | Outpatient (CLI) | payer MEDICARE, SELFPAY ==
--- NOTE | ~2024-05-27 | MM_ITS ---
EXAMINATION: MM screening darin BI w pooja HISTORY: Screening TECHNIQUE: Craniocaudal and mediolateral oblique 3-D tomosynthesis images were obtained and synthetic 2-D images were generated. CAD analysis was submitted and interpreted. COMPARISON: Comparison to multiple prior studies sequentially, with oldest reviewed study dated 04/18. BREAST PARENCHYMAL COMPOSITION: Dense: The breasts are heterogeneously dense, which may obscure small masses FINDINGS: There is no evidence of suspicious mass, calcification, or architectural distortion to sugg est malignancy in either breast. There has been no suspicious interval change. IMPRESSION: 1. No mammographic evidence of malignancy. 2. Recommend routine screening mammography in one year. BI-RADS Category 1: Negative Reviewed, dictated and finalized at location B.
== END 2024-05-27 15:10 | disposition home or self-care (01) ==
PROVIDERS: PCP Family Medicine; Visit Provider Family Medicine
DX: Z12.31 Encounter for screening mammogram for malignant neoplasm of breast (principal)
CPT/HCPCS: 77063; 77067

== ENCOUNTER 2025-05-28 08:26 | Outpatient (CLI) | payer MEDICARE, SELFPAY ==
--- NOTE | ~2025-05-28 | MM_ITS ---
EXAMINATION: MM screening darin BI w pooja HISTORY: Screening TECHNIQUE: Craniocaudal and mediolateral oblique 3-D tomosynthesis images were obtained and synthetic 2-D images were generated. CAD analysis was submitted and interpreted. COMPARISON: Comparison to multiple prior studies sequentially, with oldest reviewed study dated 2019. BREAST PARENCHYMAL COMPOSITION: The breasts are heterogeneously dense, which may obscure small masses . FINDINGS: There is no evidence of suspicious mass, calcification, or architectural distortion to sug gest malignancy in either breast. IMPRESSION: 1. No mammographic evidence of malignancy. 2. Recommend routine screening mammography in one year. BI-RADS Category 1: Negative Reviewed, dictated and finalized at location B.
--- NOTE | ~2025-05-28 | DEXA_ITS ---
Bone Density Report Name: MARISELA CARTY Age: 65 Sex: Female Ethnicity: White Date of : 1960 Indication: postmenopausal; screening for osteoporosis; Referring Provider: KENNETH BTEHEA Study: Bone densitometry was performed. Exam Date: May 28, 2025 Accession number: [id number] Bone Density: Region BMD T-score Z-score Classification AP Spine(L1-L4) 0.763 -2.6 -0.7 Osteoporosis Femoral Neck (Left) 0.627 -2.0 -0.4 Osteopenia Total Hip (Left) 0.759 -1.5 -0.2 Osteopenia Femoral Neck (Right) 0.661 -1.7 -0.1 Osteopenia Total Hip (Right) 0.751 -1.6 -0.3 Osteopenia Total Hip Mean 0.755 -1.6 -0.3 Osteopenia World Health Organization criteria for BMD impression classify patients as: Normal (T-score at or above -1.0), Osteopenia (T-score between -1.0 and -2.5), or Osteoporosis (T-score at or below -2.5). 10-year Fracture Risk: FRAX not reported because: Some T-score for Spine Total or Hip Total or Femoral Neck at or below -2.5 Clinical Information Provided by Patient: Has used the following medications: Vitamin D, Calcium Patient maximum height was 60 Menopause Age: 49 No regular weight bearing exercise Onset of menses at age 10 Number of children 1 Impression: The patient has osteoporosis, based on the Total Spine T-score. Discussion: INCREASED RISK OF FRACTURE. BONE DENSITY IS UNDESIRABLY LOW AT ONE OR MORE SKELETAL SITES, CONSISTENT WITH POSTMENOPAUSAL OSTEOPOROSIS. This patient's lowest T-score meets the World Health Organization's (WHO) criteria for osteoporosis at one or more sites (T-score -2.5 or below). In untreated patients, the risk of osteoporotic fracture increases approximately two-fold for each 1.0 SD decrease in T-score. Low bone density is not the only risk factor for fracture; also consider factors such as patient's age, frailty or poor health, risk of falling, risk of injury, previous osteoporotic fracture, family history of osteoporosis, cigarette smoking, low body weight, etc. Not everyone with low bone mineral density has osteoporosis; osteomalacia and other metabolic bone disorders should also be considered. Patients who have osteoporosis should be evaluated for specific diseases and conditions (secondary causes) that may cause or contribute to bone loss. The [place] [employer]ocrinologists (AACE) and National Osteoporosis Foundation (NOF) recommend pharmacologic intervention for all postmenopausal women whose T-score is in this range. The patient should follow a healthful lifestyle (good nutrition with adequate calcium and vitamin D, and appropriate weight-bearing exercise). Follow-Up: Consider a repeat BMD and Vertebral Fracture Assessment (VFA) exam in 2 years or sooner if medically necessary, to reassess this patient's status. Reported by: YOLANDA on 05/28/2025 9:23:00 AM. Reviewed, dictated and finalized at location A.
== END 2025-05-28 08:27 | disposition home or self-care (01) ==
LOC: ANHIMG 08:31
PROVIDERS: PCP Family Medicine; Visit Provider Family Medicine
DX: Z12.31 Encounter for screening mammogram for malignant neoplasm of breast (principal); Z78.0 Asymptomatic menopausal state; M81.0 Age-related osteoporosis without current pathological fracture; M85.852 Other specified disorders of bone density and structure, left thigh; M85.851 Other specified disorders of bone density and structure, right thigh
CPT/HCPCS: 77063; 77067; 77080

== ENCOUNTER 2025-06-16 12:55 | Outpatient (CLI) | payer MEDICARE, SELFPAY ==
--- NOTE | ~2025-06-16 | XR_ITS ---
XR abdomen/kub 1V 06/16/2025 13:16 INDICATION: Renal stone TECHNIQUE: KUB COMPARISON: None FINDINGS: Bowel gas pattern is normal. There is no evidence of free air, mass, organomegaly, ascites or obstruction. No abnormal calculi are seen. The bones appear intact. IMPRESSION: 1: No acute abdominal abnormality identified. Reviewed, dictated and finalized at location A.
== END 2025-06-16 12:56 | disposition home or self-care (01) ==
PROVIDERS: PCP Family Medicine; Visit Provider Physician Assistant
DX: N20.0 Calculus of kidney (principal)
CPT/HCPCS: 74018

== ENCOUNTER 2025-06-18 13:09 | Outpatient (CLI) | payer MEDICARE, SELFPAY ==
--- NOTE | ~2025-06-18 | US_ITS ---
EXAM: RENAL ULTRASOUND HISTORY: calculus of kidney COMPARISON: None. Reference is made to CT examination of the abdomen and pelvis dated 04/23/2024. Reference is also made to a plain film evaluation of the abdomen and pelvis performed 06/16/2025. FINDINGS: RIGHT KIDNEY: 8.3 x 3.4 x 3.7 cm. The parenchyma of the right kidney is unremarkable in echogenicity and caliber. No hydronephrosis or bulky renal calculi. However, on plain radiograph of the abdomen and pelvis, utilizing the coordinates from previous CT ex amination (approximately 4 cm lateral to the spine and approximately 2.4 cm caudal to the calcified c ostochondral junction) there is a 5.2 mm oval-shaped focus, presumably projecting over the lower pole of the right kidney corresponding to the abnormality seen on prior CT examination. LEFT KIDNEY: 9.5 x 4.5 x 3.3 cm No hydronephrosis or renal calculi. The parenchyma of the left kidney is unremarkable in echogenicity and caliber. BLADDER: Bilateral ureteral jets are visualized. IMPRESSION: No hydronephrosis or renal calculi detected sonographically. However, on plain radiograph of the abdomen dated 06/16/2025, utilizing the coordinates from previous CT examination (approximately 4 cm lateral to the spine and approximately 2.4 cm caudal to the heavil y calcified costochondral junctions) there is a 5 mm oval-shaped focus, oriented in the vertical posi tion presumably projecting over the lower pole of the right kidney corresponding to the abnormality s een on prior CT examination. Reviewed, dictated and finalized at location A. IMPRESSION: No hydronephrosis or renal calculi detected sonographically. However, on plain radiograph of the abdomen dated 06/16/2025, utilizing the coor dinates from previous CT examination (approximately 4 cm lateral to the spine a nd approximately 2.4 cm caudal to the heavily calcified costochondral junctions ) there is a 5 mm oval-shaped focus, oriented in the vertical position presumab ly projecting over the lower pole of the right kidney corresponding to the abno rmality seen on prior CT examination.
== END 2025-06-18 13:10 | disposition home or self-care (01) ==
PROVIDERS: PCP Family Medicine; Visit Provider Physician Assistant
DX: N20.0 Calculus of kidney (principal)
CPT/HCPCS: 76770

== ENCOUNTER 2025-06-30 12:43 | Outpatient (CLI) | payer MEDICARE, SELFPAY | END 2025-06-30 12:44 | disposition home or self-care (01) | LOC: ANHAUDIO 12:44 | PROVIDERS: PCP Family Medicine; Visit Provider Family Medicine | DX: H90.3 Sensorineural hearing loss, bilateral (principal) | CPT/HCPCS: 92557; 92567 ==

== ENCOUNTER 2025-08-12 02:26 | Day surgery (SDC) | payer MEDICARE, SELFPAY ==
[2025-07-31 12:24] VITALS: BMI 20.2
--- NOTE | 2025-08-12 07:05 | P.PNAN_ITS ---
Anes - Initial Pre Proc Eval Procedure: Operation Date: 08/12/25 08:30 Proposed Procedures p Screening Colonoscopy - Bulmaro Kaiser DO Date/Time: 08/12/25 07:05 Surgeon: Bulmaro Kaiser DO Pre Op Diagnosis: Screening for malignant neoplasm of colon Patient Data Age: 65 Gender: F Height: 1.5 m Weight: 45.5 kg Allergies Allergy/AdvReac Type Severity Reaction Status Date / Time No Known Allergies Allergy Mild Verified 08/12/25 07:13 Home Medications ?Medication ?Instructions ?Recorded ?Confirmed ?Type [id number]-itjrvyxa-[id number] 1 tablet PO BID 09/13/21 08/12/25 History tablet (Multivitamin 50 Plus tablet) fluticasone propionate 50 1 - 2 spray intranasal BID # 96 mL 04/11/24 08/12/25 Rx mcg/actuation nasal spray,suspension (Flonase Allergy Relief) cetirizine 10 mg capsule (Zyrtec) 10 mg PO DAILY PRN a llergy symptoms 05/14/24 08/12/25 History estradiol 0.01% (0.1 mg/gram) 1 g vaginal WEEKLY 01/1908/12/25 History vaginal cream sumatriptan succinate 100 mg tablet See Rx Instruction s PO .COMPLEX 03/12/25 08/12/25 Rx #36 tabs Patient hx anesthesia problems: none Family hx anesthesia problems: none Results Review: All pre-operative results and documents have been reviewed as part of the pre- operative evaluation. [facility] Past Medical History Medical History Glaucoma Chronic eustachian tube dysfunction Glaucoma, both eyes Cervical spondylosis History of trigger finger w/ Dr. Prajapati ~2017 History of kidney stones 2010 Osteopenia Surgical History Surgical History H/O thumb surgery Family History Family History Mother Hypertension Family history of osteoarthritis Patient's mother is in good health Family history of Alzheimer's disease Sibling Patient's brother is in good health Father Patient's father is Social History Social History Smoking status: Never smoker Second hand tobacco smoke exposure: No Alcohol intake: never Substance use: never Substance use type: does not use Lack of Transportation: No Lack of Food: Never True Current Housing: I Have Housing Concerned About Future Housing: No Difficulty Paying Gas/Electric Bills: No Difficulty Paying for Meds: No Currently Unemployed: No Education: Master's Degree or Higher Difficulty w/ Childcare or Family Care: No Living arrangements: with family Occupation/Education: retired Gender identity (if verbalized by the patient): Female Sexual Orientation (if Verbalized by the Patient): Straight or Heterosexual Spiritual care concerns: No Agree to blood products: Yes Anes - Eval Final PreProcedure Day of Procedure 08/12/25 07:05 Patient weight: normal Heart: regular rate and rhythm Lungs: clear to auscultation and normal air movement Airway: Mallampati scale class II Neurological: alert and oriented Last oral intake: >/= 8 hours ASA classification: II Emergent: no Anesthetic plan: proceed Anesthesia type and monitoring: general GIVS and standard monitoring Results Review: All pre-operative results and documents have been reviewed as part of the pre- operative evaluation. Informed Consent: The patient's anesthetic plan and its attendant risks and benefits were discussed with the patient/family/POA. Questions were solicited and answers provided to the satisfaction of the patient/family/POA.
[2025-08-12 07:13] VITALS: BP 108/60; PULSE 87; RESP 18; TEMP 36.1; O2SAT 100; BMI 19.8
[2025-08-12] MEDS: LACTATED RINGERS 1,000 ML 150 ML IV CONT (07:30)
--- NOTE | 2025-08-12 08:24 | PM.IMHP ---
H&P: HPI History of Present Illness Date/Time: 08/12/25 08:24 Chief Complaint: history of colon polyps Narrative: this is a 65-year-old presents for colonoscopy. Her last colonoscopy was 5 years ago. She denies any hematochezia or melena. She denies family history of colon cancer. She did have polyps on previous colonoscopies. Review of Systems Review of Systems: All systems reviewed & are unremarkable except as noted in HPI and below Constitutional: Constitutional: Denies chills, Denies fever(s), Denies headache(s) and Denies weight loss Eyes: Eyes: Denies change in vision ENT: Denies dizziness, Denies headache(s), Denies neck mass and Denies throat swelling Cardiovascular: Cardiovascular: Denies chest pain, Denies lightheadedness and Denies dyspnea Respiratory: Respiratory: Denies cough, Denies dyspnea and Denies wheezing Gastrointestinal: Gastrointestinal: Denies abdominal pain, Denies change in bowel habits, Denies nausea and Denies vomiting Genitourinary: Genitourinary: Denies hematuria and Denies dysuria Musculoskeletal: Musculoskeletal: Reports as per HPI Integumentary/Breasts: Skin/Breast: Reports as per HPI Neurologic: Denies dizziness and Denies headache(s) Allergic/Immunologic: Allergic/Immunologic: Denies throat swelling and Denies wheezing PMFSH Past Medical History Medical History Glaucoma Chronic eustachian tube dysfunction Glaucoma, both eyes Cervical spondylosis History of trigger finger w/ Dr. Prajapati ~2017 History of kidney stones 2010 Osteopenia Surgical History Surgical History H/O thumb surgery Family History Family History Mother Hypertension Family history of osteoarthritis Patient's mother is in good health Family history of Alzheimer's disease Sibling Patient's brother is in good health Father Patient's father is Social History Social History Smoking status: Never smoker Second hand tobacco smoke exposure: No Alcohol intake: never Substance use: never Substance use type: does not use Lack of Transportation: No Lack of Food: Never True Current Housing: I Have Housing Concerned About Future Housing: No Difficulty Paying Gas/Electric Bills: No Difficulty Paying for Meds: No Currently Unemployed: No Education: Master's Degree or Higher Difficulty w/ Childcare or Family Care: No Living arrangements: with family Occupation/Education: retired Gender identity (if verbalized by the patient): Female Sexual Orientation (if Verbalized by the Patient): Straight or Heterosexual Spiritual care concerns: No Agree to blood products: Yes Meds Home Medications and Allergies Home Medications ?Medication ?Instructions ?Recorded ?Confirmed ?Type dfslheazuupk-asiylthc-[id number] 1 tablet PO BID 09/13/21 08/12/25 History tablet (Multivitamin 50 Plus tablet) fluticasone propionate 50 1 - 2 spray intranasal BID #96 mL 04/11/24 08/12/25 Rx mcg/actuation nasal spray,suspension (Flonase Allergy Relief) cetirizine 10 mg capsule (Zyrtec) 10 mg PO DAILY PRN allergy symptoms 05/14/24 08/12/25 History estradiol 0.01% (0.1 mg/gram) 1 g vaginal WEEKLY 01/19/25 08/12/25 History vaginal cream sumatriptan succinate 100 mg tablet See Rx Instructions PO .COMPLEX 03/12/25 08/12/25 Rx #36 tabs sodium,potassium,mag sulfates 17.5 See Rx Instructions PO .COMPLEX 05/27/25 08/12/25 Rx gram-3.13 gram-1.6 gram oral soln #354 mL (Suprep Bowel Prep Kit) Allergies Allergy/AdvReac Type Severity Reaction Status Date / Time No Known Allergies Allergy Mild Verified 08/12/25 07:13 Vital Signs Vital Signs - 24 hr 08/12/25 07:13 Temperature 97 F L Pulse Rate 87 Respiratory Rate 18 Blood Pressure 108/60 Pulse Oximetry 100 Oxygen Delivery Room Air Exam Const: General: no acute distress and alert Orientation/consciousness: patient oriented x3 HENMT: Head: normocephalic and atraumatic Ears: hearing grossly normal bilaterally Face/Nose/Sinus: Normal nares present Mouth: Yes Normal oral and palatal mucosa present Eyes: Periorbital: periorbital findings normal Sclera: sclerae normal EOM: EOMs intact bilaterally Neck: Neck: normal visual inspection, no lymphadenopathy and trachea midline Chest: Chest palpation & inspection: normal inspection of the chest Resp: Effort & Inspection: normal respiratory effort Auscultation: clear to auscultation bilaterally Cardio: Jugular venous distension: no JVD Rate: regular rate Rhythm: regular rhythm Heart sounds: S1 normal heart sound present and S2 normal heart sound present Peripheral pulses: Peripheral pulses 2+ throughout GI: Inspection: normal to inspection GI Palp: Yes Soft to palpation, No Tenderness to palpation present (GI), No Guarding due to palpation present (GI) and No Rebound tenderness present Percussion: Yes normal to percussion Auscultation: normal bowel sounds : General: Yes no CVA tenderness Back/Spine/Pelvis: Back: no CVA tenderness Neuro: General: patient oriented x3, no focal motor deficits and CN's II-XI intact bilaterally Cognition (Neuro): normal cognition Speech: normal speech Motor exam (neuro): 5/5 motor strength present throughout Extrem: General: capillary refill normal and no clubbing, cyanosis or edema Assessment and Plan Assessment and plan (1) Hx of colonic polyps: Code(s): Z86.0100 - Personal history of colon polyps, unspecified Status: Acute Assessment and Plan: I have recommended colonoscopy. I have discussed the procedure, risks, benefits, and alternatives. Questions were answered. Patient is agreeable to proceed.
[2025-08-12 08:53] VITALS: BP 90/42; PULSE 76; RESP 16; O2SAT 100
[2025-08-12 09:03] VITALS: BP 105/53; PULSE 77; RESP 20; O2SAT 100
[2025-08-12 09:13] VITALS: BP 120/54; PULSE 72; RESP 20; O2SAT 100
== END 2025-08-12 09:20 | disposition home or self-care (01) ==
PROVIDERS: PCP Family Medicine; Visit Provider Surgery
PROC: 0DJD8ZZ Inspection of Lower Intestinal Tract, Via Natural or Artificial Opening Endoscopic (ICD-10-PCS; CPT 45378; principal; 2025-08-12 08:30)
DX: Z12.11 Encounter for screening for malignant neoplasm of colon (principal); M43.02 Spondylolysis, cervical region; M85.88 Other specified disorders of bone density and structure, other site; H69.90 Unspecified Eustachian tube disorder, unspecified ear; Z98.890 Other specified postprocedural states; Z87.442 Personal history of urinary calculi; Z86.0100 Personal history of colon polyps, unspecified
CPT/HCPCS: G0105; J2704; J7120